=== PATIENT | male | born 1995 | race Caucasian/White ===

== ENCOUNTER 2016-10-25 03:08 | Emergency (ER) | payer SELFPAY ==
[2016-10-25 03:21] VITALS: RESP 16; TEMP 96.2
--- NOTE | 2016-10-25 04:19 | PDOC ---
Foot / Ankle Injury - General Chief Complaint: Lower Extremity Problem/Injury Stated Complaint: RIGHT ANKLE INJURY Date Seen by Provider: 10/25/16 Time Seen by Provider: 03:15 Source: POSITIVE: Patient Exam Limitations: POSITIVE: No limitations Nurse's Notes Reviewed & Considered: Yes - History of Present Illness Initial Comments: The patient is a 21-year-old male who presents to the emergency department with right foot and ankle pain. He states that he was walking down some stairs and when he got to the bottom he lost his footing and fell. He states that he twisted his right foot and ankle. He is unable to put any weight on the right foot. He states that afterward he became angry and punched a chair. He has a small abrasion to the right hand however denies any significant pain in his hand. He denies any other associated injuries or complaints. He states that he had a tetanus shot one year ago. Have you received a tetanus shot in the past 10 years?: Yes - Patient Allergies Allergies/Adverse Reactions: Allergies Allergy/AdvReac Type Severity Reaction Status Date / Time No Known Allergies Allergy Verified 10/25/16 03:13 - Patient Home Medications Home Medications: Home Medications NK [No Home Medications Reported] 10/25/16 Past Medical History - heen HEENT History: Denies History Cardiovascular History: Other (please comment) Additional Cardiovasular History: ABLATION Respiratory History: Denies History Gastrointestinal History: Denies History Genitourinary History: Denies History Endocrine History: Denies History Musculoskeletal History: Denies History Neurological History: Denies History Blood Disorders: Denies History Psychiatric History: Denies History Male Reproductive History: Denies History Cancer History: Denies History In Past Year Been Physically Harmed or Verbally Threatened: No History of MDRO: No Tobacco Use: Current Every Day Smoker Alcohol Use: Occasionally Substance Use Type: None Previous Surgical History: Yes Type / Date of Surgery: ABLATION Significant Family History: No pertinent family hx Past Medical History Reviewed: Reviewed - No Changes ROS - Limitations ROS Limitations: No Limitations (Review of systems otherwise noncontributory) Foot / Ankle Exam - General Appearance General Appearance: POSITIVE: Alert, Cooperative, No Acute Distress - Extremities Foot: POSITIVE: Other (he does have some tenderness over the medial aspect of the midfoot, no visible swelling or deformity, good dorsalis pedis pulse in the right foot) Ankle: POSITIVE: Other (he does have swelling to the lateral malleolus with associated tenderness, there is also a small abrasion over the lateral malleolus , no tenderness in the proximal leg) Neuro: POSITIVE: Sensation Normal, Motor Normal Vascular: POSITIVE: No Vascular Compromise - HEENT HEENT: POSITIVE: Head Inspection Nml - Respiratory / CVS Respiratory / CVS: POSITIVE: No Respiratory Distress, Heart Sounds Normal, Regular Rate/Rhythm, Breath Sounds Normal Peripheral Pulses: Dorsalis-pedis (R): 2+ Foot / Ankle Progress - Results Reviewed by me Xrays/CTs/US Reviewed by me: Yes Radiology Findings: X-ray of the right foot and ankle is negative for any fracture. - Patient's Progress MDM / ED Course: X-ray findings were discussed with the patient. It appears that he has a soft tissue sprain of the right foot and ankle with no visible fracture on x-ray. The patient stated that he "had to go to work tomorrow" and wanted something that would allow him to walk on his right foot. I stated that even though there is not fracture there that he still has injury and that this will likely take several days or a week to feel much better. I cannot guarantee that he will be able to work tomorrow. Was placed in a Cam Walker boot and has crutches to assist with ambulation. He was advised that he can bear weight as tolerated. He will continue ice and elevation and was advised to take ibuprofen 600 mg every 6 hours as needed for pain. He will return to the emergency room if any worsening or change in symptoms. He is advised follow-up with primary care or orthopedics if continued pain in 5-7 days. - Consult Counseled: POSITIVE: Patient, RE: Radiology Results, RE: DX, RE: Need for F/U Patient Care Time - Estimated PCT Patient Care Time (In Minutes): 15 Vital Signs - Recent Vital Signs Vital Signs: Vital Signs (Last 8 hours) Temp Pulse Resp BP Pulse Ox 10/25/16 03:14 96.2 F L 89 16 154/93 95 10/25/16 03:08 96.2 F L 89 16 154/93 95 - VS Reviewed Vital Signs Reviewed: Yes Discharge Clinical Impression: Sprain of ankle, Foot sprain Discharge Disposition: Discharged to Home Condition: Stable Patient Instructions Given at Discharge: Ankle Sprain (ED), Foot Sprain (ED) Additional Instructions: The x-ray of your right foot and ankle does not reveal any evidence of fracture. This injury appears to be a soft tissue sprain. Recommend Cam Walker boot. Crutches to assist with ambulation. You can bear weight as tolerated. Recommend ice and elevation of the right foot to help reduce pain and swelling. Recommend ibuprofen 600 mg every 6 hours as needed for pain. Return to the emergency room if increased pain or numbness, any worsening or change in symptoms. Recommend follow-up with primary care or with orthopedic surgery if continued pain in 5-7 days. Follow Up With: NONE,NONE [Primary Care Provider] -
--- NOTE | 2016-10-25 09:22 | DI ---
XR ANKLE COMPLETE MIN 3VW,10/25/2016 3:19 AM: Clinical History: Right ankle pain Previous Exam: None at this facility. Findings: 3 views of the right ankle are obtained, and demonstrate anatomic alignment without fractures. There are swelling overlying the lateral malleolus. There is a small ankle joint effusion. Impression: No fractures.
--- NOTE | 2016-10-25 09:24 | DI ---
And XR FOOT COMPLETE MIN 3VW,10/25/2016 3:19 AM: Clinical History: Fall with right foot pain. Previous Exam: None at this facility. Findings: 3 views of the right foot are obtained, and demonstrate anatomic alignment without fractures. There i s 28? of hallux valgus of the right first metatarsophalangeal joint. No fractures are seen. Impression: Hallux valgus deformity otherwise unremarkable.
== END 2016-10-25 04:15 | disposition home or self-care (01) ==
LOC: ER 03:08
DX: S93.401A Sprain of unspecified ligament of right ankle, initial encounter (principal); S93.601A Unspecified sprain of right foot, initial encounter; S60.511A Abrasion of right hand, initial encounter; W10.8XXA Fall (on) (from) other stairs and steps, initial encounter
CPT/HCPCS: 73610; 73630; 99282

== ENCOUNTER → 2016-11-04 | Outpatient (CLI) | payer SELFPAY ==
--- NOTE | 2016-11-04 10:26 | DI ---
XR ANKLE COMPLETE MIN 3VW,11/04/2016 10:15 AM: Clinical History: Right ankle pain Previous Exam: October Findings: 3 views of the right ankle are obtained, and demonstrate anatomic alignment without fractures. Surrou nding soft tissues are unremarkable. There is a small right ankle joint effusion. Impression: Normal right ankle.
== END ==
LOC: ORTHO 10:22
PROVIDERS: ATTEND Physician Assistant
DX: M25.571 Pain in right ankle and joints of right foot (principal); M25.471 Effusion, right ankle; S93.431A Sprain of tibiofibular ligament of right ankle, initial encounter; X50.1XXA Overexertion from prolonged static or awkward postures, initial encounter
CPT/HCPCS: 73610

== ENCOUNTER 2017-01-25 18:45 | Emergency (ER) | payer SELFPAY ==
[2017-01-25] MEDS ORDERED: IBUPROFEN 600 MG TABLET PO ONE (19:13)
[2017-01-25] MEDS ORDERED: HYDROcodone-APAP 5 MG -325 MG TABLET PO ONE (19:13)
[2017-01-25] MEDS ORDERED: HYDROcodone-APAP 7.5 MG-325 MG TABLET PO SCH (20:45)
--- NOTE | 2017-01-25 23:25 | PDOC ---
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 He states that he was working on the motor in his truck. 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 His dog apparently released the motor from the toscano picker machine operator and it fell glancing off the left lateral chest wall. He has associated left chest wall pain. His pain is increased with breathing and with movement. He denies associated abdominal pain. He denies neck or back pain or any other associated complaints. Have you received a tetanus shot in the past 10 years?: Yes - Patient Home Medications Home Medications: Home Medications Sulfamethoxazole/Trimethoprim [Bactrim Ds Tablet] 1 tab PO BID #20 tab 01/03/17 HYDROcodone/APAP 7.5/325 Tab [[place] 7.5/325 Tab] 1 each PO Q6H #15 tablet 07/13 - Patient Allergies Allergies/Adverse Reactions: Allergies Allergy/AdvReac Type Severity Reaction Status Date / Time No Known Allergies Allergy Unverified 11/09/16 13:33 Past Medical History - heen HEENT History: Denies History Cardiovascular History: Other (please comment) Additional Cardiovasular History: ABLATION Respiratory History: Denies History Gastrointestinal History: Denies History Genitourinary History: Denies History Endocrine History: Denies History Musculoskeletal History: Denies History Neurological History: Denies History Blood Disorders: Denies History Psychiatric History: Denies History Cancer History: Denies History History of MDRO: No Alcohol Use: Occasionally Substance Use Type: None Previous Surgical History: Yes Type / Date of Surgery: ABLATION Significant Family History: No pertinent family hx Past Medical History Reviewed: Reviewed - No Changes ROS - Limitations ROS Limitations: No Limitations, Other (please comment) (Review of systems otherwise noncontributory) General Adult Exam - General Appearance General Appearance: POSITIVE: Alert, Cooperative, No Acute Distress - HEENT HEENT: POSITIVE: Head Inspection Nml - Neck Neck: POSITIVE: Normal Inspection - Respiratory Respiratory: POSITIVE: No Respiratory Distress, Breath Sounds Normal, Other (He does have tenderness over the left anterior lower chest wall, there is no crepitus or rib deformity, no abrasion or bruising to the chest wall) - Cardiovascular Cardiovascular: POSITIVE: Regular Rate & Rhythm, No Murmur Peripheral Pulses: Dorsalis-pedis (R): 2+, Dorsalis-pedis (L): 2+ - Abdomen Abdomen: Soft: (All Quadrants), Denies Tenderness: (All Quadrants), No Distention: (All Quadrants) - Back Back: POSITIVE: Normal Inspection (No midline T-spine tenderness) - Skin Skin: POSITIVE: Normal Color, No Rash - Extremities Extremity: Normal ROM: (All Extremities), Normal Inspection: (All Extremities) - Neurological / Psychological Neurological: POSITIVE: Other (No focal neurologic deficits) General Adult Progress - Results Reviewed by me Xrays/CTs/US Reviewed by me: Yes Radiology Findings: Chest x-ray shows no obvious visible displaced rib fracture , no evidence of pneumothorax. - Patient's Progress MDM / ED Course: The patient's chest x-ray showed no obvious rib fracture however it's possible he may have a nondisplaced rib fracture. He did receive [place] 5/325 #2 by mouth for pain as well as ibuprofen 600 mg for pain. He was discharged home and advised to continue ibuprofen and was given [place] 7.5/325 which he can take one every 4-6 hours as needed for pain. He is advised return to the emergency room if he develops increased chest wall pain, abdominal pain, fever or productive cough, shortness of breath, any worsening or change in symptoms. He is advised follow-up with primary care in 3-5 days. - Consult Counseled: POSITIVE: Patient, RE: Radiology Results, RE: DX, RE: Need for F/U Patient Care Time - Estimated PCT Patient Care Time (In Minutes): 15 Vital Signs - VS Reviewed Vital Signs Reviewed: Yes Discharge Clinical Impression: Chest wall contusion Discharge Disposition: Discharged to Home Condition: Stable Prescriptions / Orders: HYDROcodone/APAP 7.5/325 Tab [[place] 7.5/325 Tab] 1 each PO Q6H #15 tablet Patient Instructions Given at Discharge: Rib Fracture (ED), Rib Contusion (ED) Additional Instructions: There was no obvious displaced rib fracture on your x-ray however use could still have a cracked rib. There is no evidence of any injury to the lung and no clinical sign of internal injury. Recommend ibuprofen 600 mg every 6 hours as needed for pain. Also you have been prescribed [place] 7.5/325 which he can take one every 6 hours as needed for pain. Return to the emergency room if increased shortness of breath, increased pain, abdominal pain, fever, productive cough, any worsening or change in symptoms. Recommend follow-up in the clinic in 5-7 days. Follow Up With: NONE,NONE [Primary Care Provider] -
[2017-01-26 01:01] VITALS: TEMP 97.9
[2017-01-26 01:02] VITALS: RESP 18
--- NOTE | 2017-01-26 10:38 | DI ---
XR CXR 2VW PA/LAT,01/25/2017 6:53 PM: Clinical History: Left chest wall injury Previous Exam: None at this facility. Findings: 3 views of the chest are obtained, and demonstrate clear lungs. The cardiomediastinum and bony thorax are unremarkable. Impression: No acute disease.
== END 2017-01-25 20:45 | disposition home or self-care (01) ==
LOC: ER 18:45
DX: R07.9 Chest pain, unspecified (principal); S20.212A Contusion of left front wall of thorax, initial encounter; W20.8XXA Other cause of strike by thrown, projected or falling object, initial encounter
CPT/HCPCS: 71020; 99282

== ENCOUNTER → 2017-01-26 | Outpatient (CLI) | payer SELFPAY ==
--- NOTE | 2017-01-26 13:50 | DI ---
CT ABD W/CN AND PELVIS W/CN,01/26/2017 10:12 AM: Clinical History: Abdominal pain Previous Exam: None at this facility. Findings: Multiple helically acquired CT images are obtained through the abdomen and pelvis without contrast, a nd demonstrate moderate stool throughout the colon. The liver, gallbladder, spleen, pancreas and adrenals are unremarkable. Lung bases are clear. There are a few mesenteric lymph nodes, which are nonpathologic by size criteria. There is no evidence of free fluid nor splenic laceration. Visible ribs are unremarkable. Other skeletal structures are also unremarkable. Impression: Normal CT abdomen pelvis without evidence of splenic laceration.
== END ==
LOC: CT 10:07
PROVIDERS: ATTEND Physician Assistant
DX: R10.812 Left upper quadrant abdominal tenderness (principal); R10.814 Left lower quadrant abdominal tenderness; R10.13 Epigastric pain; W20.8XXA Other cause of strike by thrown, projected or falling object, initial encounter; Y93.89 Activity, other specified
CPT/HCPCS: 74177

== ENCOUNTER → 2017-01-26 | Outpatient (CLI) | payer SELFPAY ==
[2017-01-26 10:07] LABS: BASOPHILS # (AUTO) 0.07 10*3/UL; BASOPHILS % (AUTO) 1.1 % (0-1); EOSINOPHILS # (AUTO) 0.14 10*3/UL; EOSINOPHILS % (AUTO) 2.3 % (0-8); HEMATOCRIT 43.4 % (42.0-52.0); HEMOGLOBIN 14.9 g/dL (14.0-18.0); LYMPHOCYTES # (AUTO) 2.63 10*3/uL; MEAN CORPUSCULAR HEMOGLOBIN 31.6 PG (27-31); MEAN CORPUSCULAR HGB CONC 34.3 g/dL (33-37); MEAN CORPUSCULAR VOLUME 91.9 FL (80-90); MONOCYTES # (AUTO) 0.69 10*3/UL (0.3-0.8); MONOCYTES % (AUTO) 11.1 % (5-15); NEUTROPHILS # (AUTO) 2.66 10*3/UL; NEUTROPHILS % (AUTO) 42.9 % (50-80); RED BLOOD COUNT 4.72 10^6/uL (4.70-6.10)
[2017-01-26 10:08] LABS: PLATELET MORPHOLOGY COMMENT NORMAL MORPHOLOGY (NORM); RBC MORPHOLOGY COMMENT NORMAL MORPHOLOGY (NORM); WBC MORPHOLOGY COMMENT NORMAL MORPHOLOGY (NORM)
[2017-01-26 10:16] LABS: BLOOD UREA NITROGEN 18 mg/dL (7-22); CALCIUM 9.6 mg/dL (8.7-10.7); EST GLOMERULAR FILTRATION > 60 (>60 ml/min/1.73m(2)); LIPASE 15 IU/L (23-300); SERUM ALBUMIN 4.7 g/dL (3.5-4.8)
--- NOTE | 2017-01-26 13:06 | DI ---
PA /LATERAL CHEST X-RAY, 01/26/2017 9:15 AM : Clinical History: Abdominal injury Previous Exam: January 25, 2017 There is no acute soft tissue or bony abnormality. Heart size is normal. Lungs are clear. Mediastinal structures are normal. There are no pulmonary nodules. IMPRESSION: Normal chest x-ray.
== END ==
LOC: MOB LAB 09:18
PROVIDERS: ATTEND Physician Assistant
DX: S39.81XD Other specified injuries of abdomen, subsequent encounter (principal); R10.12 Left upper quadrant pain; R10.32 Left lower quadrant pain; R10.13 Epigastric pain
CPT/HCPCS: 36415; 71020; 80053; 83690; 85025